=== PATIENT | male | born 1955 | race Caucasian/White ===

== ENCOUNTER 2018-02-10 16:00 | Emergency (ER) | payer OTHER ==
[2018-02-10 19:27] LABS: ADD MAN DIFF? NO
[2018-02-10 19:28] LABS: BASOPHILS % 0.3 % (0.0-2.0); EOSINOPHILS # 0.2 10^3/ul (0.0-0.5); EOSINOPHILS % 2.1 % (0.0-7.0); HEMATOCRIT 48.2 % (42.0-52.0); HEMOGLOBIN 15.9 g/dl (14.0-18.0); LYMPHOCYTES # 3.5 10^3/ul (0.8-2.9); LYMPHOCYTES % 39.2 % (15.0-51.0); MEAN PLATELET VOLUME 9.9 fl (7.4-10.4); MONOCYTE # 0.9 10^3/ul (0.3-0.9); MONOCYTES % 9.9 % (0.0-11.0); NEUTROPHIL # 4.3 10^3/ul (1.6-7.5); NEUTROPHILS % 48.2 % (39.0-77.0); PLATELET COUNT 278 10^3/UL (140-415); RED BLOOD COUNT 5.48 10^6/ul (4.70-6.10); RED CELL DISTRIBUTION WIDTH 11.9 % (11.5-14.5)
[2018-02-10 19:28] LABS: WHITE BLOOD COUNT 8.9 10^3/ul (4.8-10.8)
[2018-02-10] MEDS: ONDANSETRON 4 MG INJ IV (19:37)
[2018-02-10] MEDS: SOD CHLORIDE 0.9% 1,000 ML IV (19:37)
[2018-02-10] MEDS: MECLIZINE 12.5 MG TAB PO (19:38)
[2018-02-10 19:46] LABS: ALANINE AMINOTRANSFERASE 22 IU/L (13-69); ALBUMIN 4.5 g/dl (3.3-4.9); ALBUMIN/GLOBULIN RATIO 1.28; ALKALINE PHOSPHATASE 67 IU/L (42-121); AMYLASE 108 U/L (11-123); ANION GAP 10 (5-13); ASPARTATE AMINO TRANSFERASE 24 IU/L (15-46); BILIRUBIN,INDIRECT 0.7 mg/dl (0-1.1); BILIRUBIN,TOTAL 0.7 mg/dl (0.2-1.3); BLOOD UREA NITROGEN 17 mg/dl (7-20); CALCIUM 9.4 mg/dl (8.4-10.2); CARBON DIOXIDE 28 mmol/L (21-31); CHLORIDE 105 mmol/L (97-110); CREATININE 0.85 mg/dl (0.61-1.24); Estimated GFR > 60 mL/min (>60); GLUCOSE 79 mg/dl (70-220); LIPASE 136 U/L (23-300); POTASSIUM 3.9 mmol/L (3.5-5.1); SODIUM 143 mmol/L (135-144)
[2018-02-10 19:58] LABS: TROPONIN-I < 0.012 ng/ml (0.000-0.120)
[2018-02-10 20:10] LABS: INR 0.87; PROTIME 11.9 Sec (11.9-14.9); PT RATIO 0.9
[2018-02-10 20:11] LABS: PARTIAL THROMBOPLASTIN TIME 34.7 Sec (23.0-35.0)
== END 2018-02-10 21:56 | disposition home or self-care (01) ==
LOC: E/R 16:00
DX: H81.399 Other peripheral vertigo, unspecified ear (principal); I10 Essential (primary) hypertension; J01.90 Acute sinusitis, unspecified; R40.2252 Coma scale, best verbal response, oriented, at arrival to emergency department; R40.2362 Coma scale, best motor response, obeys commands, at arrival to emergency department; R40.2142 Coma scale, eyes open, spontaneous, at arrival to emergency department; R07.9 Chest pain, unspecified
CPT/HCPCS: 70450; 71045; 80053; 82150; 83690; 84484; 85025; 85610; 85730; 93005; 96374; 99285-25

== ENCOUNTER 2018-02-20 00:07 | Emergency (ER) | payer OTHER ==
[2018-02-20 01:36] LABS: ADD MAN DIFF? NO
[2018-02-20 01:37] LABS: BASOPHILS % 0.5 % (0.0-2.0); EOSINOPHILS # 0.1 10^3/ul (0.0-0.5); EOSINOPHILS % 0.9 % (0.0-7.0); HEMATOCRIT 46.3 % (42.0-52.0); HEMOGLOBIN 15.3 g/dl (14.0-18.0); LYMPHOCYTES % 25.7 % (15.0-51.0); MEAN CORPUSCULAR HEMOGLOBIN 29.4 pg (29.0-33.0); MEAN CORPUSCULAR VOLUME 88.9 fl (82.0-101.0); MEAN PLATELET VOLUME 10.2 fl (7.4-10.4); MONOCYTE # 0.8 10^3/ul (0.3-0.9); MONOCYTES % 10.5 % (0.0-11.0); NEUTROPHIL # 4.8 10^3/ul (1.6-7.5); PLATELET COUNT 256 10^3/UL (140-415); RED BLOOD COUNT 5.21 10^6/ul (4.70-6.10); RED CELL DISTRIBUTION WIDTH 11.9 % (11.5-14.5)
[2018-02-20 01:37] LABS: WHITE BLOOD COUNT 7.7 10^3/ul (4.8-10.8)
[2018-02-20 01:57] LABS: INR 0.87; PARTIAL THROMBOPLASTIN TIME 21.1 Sec (23.0-35.0); PROTIME 11.9 Sec (11.9-14.9); PT RATIO 0.9
[2018-02-20 02:01] LABS: ANION GAP 10 (5-13); BLOOD UREA NITROGEN 20 mg/dl (7-20); CALCIUM 10.1 mg/dl (8.4-10.2); CARBON DIOXIDE 27 mmol/L (21-31); CHLORIDE 106 mmol/L (97-110); CREATININE 0.88 mg/dl (0.61-1.24); Estimated GFR > 60 mL/min (>60); GLUCOSE 103 mg/dl (70-220); POTASSIUM 4.4 mmol/L (3.5-5.1); SODIUM 143 mmol/L (135-144)
[2018-02-20 02:13] LABS: TROPONIN-I < 0.012 ng/ml (0.000-0.120)
== END 2018-02-20 02:36 | disposition home or self-care (01) ==
LOC: E/R 00:07
DX: I10 Essential (primary) hypertension (principal)
CPT/HCPCS: 36415; 70450; 71045; 80048; 84484; 85025; 85610; 85730; 99285-25